=== PATIENT | male | born 1965 ===

== ENCOUNTER 2018-10-02 09:13 | Emergency (ER) | payer BC ==
[2018-10-02 09:52] VITALS: BP 130/80
--- NOTE | 2018-10-02 10:04 | UC ---
Abdominal Pain Male HPI - HPI Summary HPI Summary: mid abdominal pain x 1 day sudden onset , pain was sharp and severe started as he was exercising , no n/v/d/c no chest pain / chest tightness no sob , felt some swelling/ bulging mid abd, concern about hernia - History of Current Complaint Chief Complaint: UCChestPain Stated Complaint: ABD "MUSCLE" PAINS Time Seen by Provider: 10/02/18 09:47 Hx Obtained From: Patient Onset/Duration: Sudden Onset, Lasting Days - 1, Resolved Timing: Constant Severity Initially: Severe Severity Currently: Mild Pain Intensity: 3 Location: Other - mid abd Radiates: No Character: Tearing Aggravating Factor(s): Movement Alleviating Factor(s): Nothing Associated Signs And Symptoms: Negative: Diaphoresis, Fever, Cough, Chest Pain, Dizzy, Back Pain, Constipation, Blood in Stool, Urinary Symptoms, Decreased Appetite, Nausea, Vomiting, Diarrhea, Penile Discharge - Allergies/Home Medications Allergies/Adverse Reactions: Allergies Allergy/AdvReac Type Severity Reaction Status Date / Time codeine Allergy Nausea And Verified 10/02/18 09:37 Vomiting IV contrast medium Allergy Intermediate Hives Uncoded 03/16/17 15:54 almonds Allergy Mild GI Upset Uncoded 03/21/17 09:03 Home Medications: Home Medications Ibuprofen TAB* [Advil TAB*] 800 mg PO Q6H PRN 10/02/18 [History Confirmed ] PMH/Surg Hx/FS Hx/Imm Hx Previously Healthy: Yes - Surgical History Surgical History: Yes Surgery Procedure, Year, and Place: BILATERAL knee scoping . Lt SHOULDER - Family History Known Family History: Positive: None Negative: Diabetes - Social History Alcohol Use: Weekly Alcohol Amount: weekends Substance Use Type: None Smoking Status (MU): Former Smoker Type: Cigarettes Amount Used/How Often: 7 years Have You Smoked in the Last Year: No When Did the Patient Quit Smoking/Using Tobacco: 25 years Review of Systems All Other Systems Reviewed And Are Negative: Yes Constitutional: Positive: Negative Skin: Positive: Negative Eyes: Positive: Negative ENT: Positive: Negative Respiratory: Positive: Negative Cardiovascular: Positive: Negative Gastrointestinal: Positive: Abdominal Pain Is Patient Immunocompromised?: No Physical Exam Triage Information Reviewed: Yes Appearance: Well-Appearing, No Pain Distress, Well-Nourished Vital Signs: Initial Vital Signs Temp 98.1 F 10/02/18 09:38 Pulse 54 10/02/18 09:38 Resp 15 10/02/18 09:38 BP 130/80 10/02/18 09:38 Pulse Ox 100 10/02/18 09:38 Vital Signs Reviewed: Yes Eye Exam: Normal Eyes: Positive: Conjunctiva Clear ENT: Positive: Normal ENT inspection, Hearing grossly normal, Pharynx normal Neck exam: Normal Neck: Positive: Supple, Nontender, No Lymphadenopathy Respiratory: Positive: Chest non-tender, Lungs clear, Normal breath sounds Cardiovascular: Positive: RRR, No Murmur, Pulses Normal Abdomen Description: Positive: Nontender, Soft. Negative: CVA Tenderness (R), CVA Tenderness (L), Distended, Guarding Bowel Sounds: Positive: Present Abd Pain Male Course/Dx - Differential Dx/Clinical Impression Provider Diagnosis: Abdominal wall pain Discharge - Sign-Out/Discharge Documenting (check all that apply): Patient Departure All imaging exams completed and their final reports reviewed: No Studies - Discharge Plan Condition: Stable Disposition: HOME Patient Education Materials: Abdominal Pain (ED) Referrals: Stevo He MD [Primary Care Provider] - 7 Days Additional Instructions: abdominal muscle strain no hernia noted cont. with rest, follow up if symptoms return - Billing Disposition and Condition Condition: STABLE Disposition: Home
== END 2018-10-02 10:06 | disposition home or self-care (01) ==
LOC: UCCORT 09:13
DX: R10.9 Unspecified abdominal pain (principal); Z88.5 Allergy status to narcotic agent; Z91.041 Radiographic dye allergy status; Z91.018 Allergy to other foods; Z87.891 Personal history of nicotine dependence
CPT/HCPCS: 93005; 99211; G0463